=== PATIENT | male | born 1985 | race Caucasian/White ===

== ENCOUNTER 2016-04-18 18:01 | Emergency (ER) | payer OTHER ==
[2016-04-18] MEDS ORDERED: IBUPROFEN 600 MG TAB As Ordered ONE (19:59)
[2016-04-18] MEDS ORDERED: AMOXICILLIN 500 MG CAP As Ordered ONE (19:59)
--- NOTE | 2016-04-18 20:05 | EDDOCDS ---
Physician Documentation [facility] Name: Riley Robledo Jr Age: 30 yrs Sex: Male : 1985 Arrival Date: 04/18/2016 Time: 18:01 Bed Triage 2 Private MD: Disposition: 04/18/16 19:59 Discharged to Home/Self Care. Impression: Acute serous otitis media, left ear, Acute upper respiratory infection, unspecified. - Condition is Stable. - Discharge Instructions: Otitis Media, Adult, Upper Respiratory Infection, Adult. - Prescriptions for Amoxicillin 500 mg Oral Capsule - take 1 capsule by ORAL route every 8 hours for 10 days; 30 tablet. - Medication Reconciliation, Local Pharmacy Hours form. - Follow up: Private Physician; When: Call to arrange an appointment; Reason: Recheck today's complaints, Continuance of care. - Problem is new. - Symptoms are unchanged. Historical: - Allergies: No known drug Allergies; - Home Meds: 1. none - PMHx: none; - PSHx: none; - Social history: Smoking status: Patient uses tobacco products, heavy tobacco smoker. No barriers to communication noted, The patient speaks fluent [place], Speaks appropriately for age. - Family history: Not pertinent. - : The pt / caregiver states he / she is not on anticoagulants. Home medication list is obtained from the patient. - Exposure Risk Screening:: None identified. Vital Signs: 04/18 18:03 BP 146 / 82 RA Sitting (auto/reg); Pulse 69; Resp 16; Temp 98.7(O); Pulse Ox 97% on jrd R/A; Weight 88.45 kg / 195 lbs (R); Height 6 ft. 1 in. (185.42 cm) (R); Pain 2/10; 20:02 BP 138 / 80; Pulse 78; Resp 18; Temp 97.5(O); Pulse Ox 99% on R/A; Pain 0/10; jmb 18:03 Body Mass Index 25.73 (88.45 kg, 185.42 cm) jrd MDM: 19:58 Amoxicillin 500 mg PO once ordered. mo1 19:58 Ibuprofen 600 mg PO once ordered. mo1 Administered Medications: 20:00 Drug: Amoxicillin 500 mg [amoxicillin 500 mg capsule (1 caps)] Route: PO; jmb 20:00 Drug: Ibuprofen 600 mg [ibuprofen 600 mg tablet (1 tabs)] Route: PO; jmb Signatures: Davide Redding PA PA mo1 Kd Roldan,RN RN mery MTDD
--- NOTE | 2016-04-18 20:05 | EDDOCDS ---
Nurse's Notes [facility] Name: Riley Robledo Jr Age: 30 yrs Sex: Male : 1985 Arrival Date: 04/18/2016 Time: 18:01 Bed Triage 2 Private MD: Diagnosis: Acute serous otitis media, left ear;Acute upper respiratory infection, unspecified Presentation: 04/18 18:06 Presenting complaint: Patient states: Patient reports that he believes to have an ear jmb infection. Patient reports that he has pressure, headaches. Patient reports pain on and off. Patient reports that his hearing loss is worse. Patient reports the main concern is pressure. Patient reports symptoms present for two days. This patient has no additional risk factors. Adult Sepsis Screening: The patient does not have new or worsening altered mentation. Patient's respiratory rate is less than 22. Systolic blood pressure is greater than 100. Patient has a qSOFA score of 0- Negative Sepsis Screen. Suicide/Homicide risk assessment- the patient denies having any suicidal and/or homicidal ideations and does not present with any other emotional, behavioral or mental health complaints. Status: Patient is not a lawn service worker or dependent. Transition of care: patient was not received from another setting of care. 18:06 Acuity: DEMOND Level 4 jmb 18:06 Method Of Arrival: Walkin/Carried/Asstd jmb Triage Assessment: 18:07 Headache History: This patient does not have a history of previous headaches. General: jmb Appears in no apparent distress, Behavior is appropriate for age, cooperative. Pain: Location: left ear Pain currently is 2 out of 10 on a pain scale. Pain began 2-3 days ago Also complains of no other associated symptoms. Pt Declines HIV testing. Neurological: Level of Consciousness is awake, alert, obeys commands, Oriented to person, place, time, Speech is normal, Facial symmetry appears normal, Facial symmetry: tongue is midline. Respiratory: Airway is patent Respiratory effort is even, unlabored, Respiratory pattern is regular, symmetrical. Derm: Skin is pink, warm & dry. Musculoskeletal: Range of motion intact in all extremities. Historical: - Allergies: No known drug Allergies; - Home Meds: 1. none - PMHx: none; - PSHx: none; - Social history: Smoking status: Patient uses tobacco products, heavy tobacco smoker. No barriers to communication noted, The patient speaks fluent Nepalese, Speaks appropriately for age. - Family history: Not pertinent. - : The pt / caregiver states he / she is not on anticoagulants. Home medication list is obtained from the patient. - Exposure Risk Screening:: None identified. Screenin:02 Screening information is obtained from the patient. Fall risk: No risks identified. jmb Assistance ADL's: requires no assistance with activities of daily living. Abuse/DV Screen: The patient / caregiver reports he/she is: not in a situation that causes fear, pain or injury. Nutritional screening: No deficits noted. Advance Directives: Currently, there is no health care proxy. There is no active DNR order. There is no living will. There is no Power of Cushion Assembler. home support is adequate. Assessment: 20:02 General: Patient instructed on discharge instructions. Patient asked if there were any b questions regarding discharge, patient stated no. Patient signed discharge instructions. Patient discharged in stable condition. . Pain: Denies pain. Vital Signs: 18:03 BP 146 / 82 RA Sitting (auto/reg); Pulse 69; Resp 16; Temp 98.7(O); Pulse Ox 97% on jrd R/A; Weight 88.45 kg (R); Height 6 ft. 1 in. (185.42 cm) (R); Pain 2/10; 20:02 BP 138 / 80; Pulse 78; Resp 18; Temp 97.5(O); Pulse Ox 99% on R/A; Pain 0/10; jmb 18:03 Body Mass Index 25.73 (88.45 kg, 185.42 cm) [facility] Vitals: 18:03 Log In Time: April 18, 2016 at 17:35. [facility] ED Course: 18:02 Patient visited by Onur Finney PCA. jrd 18:02 Patient moved to Waiting jrd 18:05 Patient visited by Onur Finney PCA. jrd 18:05 Patient moved to Pre RCE jrd 18:07 Triage Initiated jmb 19:10 Patient moved to Triage 2 ar3 19:50 Davide Redding PA is PHCP. mo1 19:50 Hayder Aguirre DO is Attending Physician. mo1 19:52 Patient visited by Davide Redding PA. mo1 20:02 The patient / caregiver is instructed regarding the plan of care and ED course. jmb 20:02 No IV's were initiated during this patient's visit. No procedures done that require jmb assistance. Administered Medications: 20:00 Drug: Amoxicillin 500 mg [amoxicillin 500 mg capsule (1 caps)] Route: PO; jmb 20:00 Drug: Ibuprofen 600 mg [ibuprofen 600 mg tablet (1 tabs)] Route: PO; jmb Order Results: There are currently no results for this order. Outcome: 19:59 Discharge ordered by Provider. mo1 20:02 Discharge Assessment: Patient awake, alert and oriented x 3. No cognitive and/or jmb functional deficits noted. Patient verbalized understanding of disposition instructions. Patient awake and alert. obeys commands, Oriented to person, place and time. Patient verbalized understanding of disposition instructions. Patient has no functional deficits. patient administered narcotics - no. The following High Risk Discharge criteria are identified: None. Discharged to home ambulatory. Condition: stable Condition: improved. Discharge instructions given to patient, Instructed on discharge instructions, follow up and referral plans. medication usage, Demonstrated understanding of instructions, medications, Pt was receptive of discharge instructions/ teaching. Prescriptions given X 1. No special radiology studies were completed. Property sent home with patient. 20:04 Patient left the ED. [facility] Signatures: Trina Hicks, PLASTIC SURGEON PLASTIC SURGEON ar3 Davide Redding PA PA mo1 Kd Roldan,RN RN Onur Byrne, PLASTIC SURGEON PLASTIC SURGEON jrd MTDD
--- NOTE | 2016-04-20 21:05 | EDDOCDS ---
Physician Documentation [facility] Name: Riley Robledo Jr Age: 30 yrs Sex: Male : 1985 Arrival Date: 04/18/2016 Time: 18:01 Bed Triage 2 Private MD: Disposition: 04/18/16 19:59 Discharged to Home/Self Care. Impression: Acute serous otitis media, left ear, Acute upper respiratory infection, unspecified. - Condition is Stable. - Discharge Instructions: Otitis Media, Adult, Upper Respiratory Infection, Adult. - Prescriptions for Amoxicillin 500 mg Oral Capsule - take 1 capsule by ORAL route every 8 hours for 10 days; 30 tablet. - Medication Reconciliation, Local Pharmacy Hours form. - Follow up: Private Physician; When: Call to arrange an appointment; Reason: Recheck today's complaints, Continuance of care. - Problem is new. - Symptoms are unchanged. Historical: - Allergies: No known drug Allergies; - Home Meds: 1. none - PMHx: none; - PSHx: none; - Social history: Smoking status: Patient uses tobacco products, heavy tobacco smoker. No barriers to communication noted, The patient speaks fluent South Korean, Speaks appropriately for age. - Family history: Not pertinent. - : The pt / caregiver states he / she is not on anticoagulants. Home medication list is obtained from the patient. - Exposure Risk Screening:: None identified. Vital Signs: 04/18 18:03 BP 146 / 82 RA Sitting (auto/reg); Pulse 69; Resp 16; Temp 98.7(O); Pulse Ox 97% on jrd R/A; Weight 88.45 kg / 195 lbs (R); Height 6 ft. 1 in. (185.42 cm) (R); Pain 2/10; 20:02 BP 138 / 80; Pulse 78; Resp 18; Temp 97.5(O); Pulse Ox 99% on R/A; Pain 0/10; jmb 18:03 Body Mass Index 25.73 (88.45 kg, 185.42 cm) jrd MDM: 19:58 Amoxicillin 500 mg PO once ordered. mo1 19:58 Ibuprofen 600 mg PO once ordered. mo1 20:15 Financial registration complete. zo 20:15 [facility] Payment Agreement was scanned into [employer] and attached to record. zo 04/19 09:28 T-Sheet-- Draft Copy was scanned into [employer] and attached to record. gb Administered Medications: 04/18 20:00 Drug: Amoxicillin 500 mg [amoxicillin 500 mg capsule (1 caps)] Route: PO; mery 20:00 Drug: Ibuprofen 600 mg [ibuprofen 600 mg tablet (1 tabs)] Route: PO; mery Signatures: Torrie Alvarez, Reg Reg gb Carina Boles Michael, PA PA mo1 Kd Roldan RN RN mery The chart was reviewed and I authenticate all verbal orders and agree with the evaluation and treatment provided.Attachments: 20:15 [facility] Payment Agreement zo 04/19 09:28 T-Sheet-- Draft Copy gb Chart Complete MTDD
--- NOTE | 2016-04-20 21:06 | EDDOCDS ---
Physician Documentation [facility] Name: Riley Robledo Jr Age: 30 yrs Sex: Male : 1985 Arrival Date: 04/18/2016 Time: 18:01 Bed Triage 2 Private MD: Disposition: 04/18/16 19:59 Discharged to Home/Self Care. Impression: Acute serous otitis media, left ear, Acute upper respiratory infection, unspecified. - Condition is Stable. - Discharge Instructions: Otitis Media, Adult, Upper Respiratory Infection, Adult. - Prescriptions for Amoxicillin 500 mg Oral Capsule - take 1 capsule by ORAL route every 8 hours for 10 days; 30 tablet. - Medication Reconciliation, Local Pharmacy Hours form. - Follow up: Private Physician; When: Call to arrange an appointment; Reason: Recheck today's complaints, Continuance of care. - Problem is new. - Symptoms are unchanged. Historical: - Allergies: No known drug Allergies; - Home Meds: 1. none - PMHx: none; - PSHx: none; - Social history: Smoking status: Patient uses tobacco products, heavy tobacco smoker. No barriers to communication noted, The patient speaks fluent [place]an, Speaks appropriately for age. - Family history: Not pertinent. - : The pt / caregiver states he / she is not on anticoagulants. Home medication list is obtained from the patient. - Exposure Risk Screening:: None identified. Vital Signs: 04/18 18:03 BP 146 / 82 RA Sitting (auto/reg); Pulse 69; Resp 16; Temp 98.7(O); Pulse Ox 97% on jrd R/A; Weight 88.45 kg / 195 lbs (R); Height 6 ft. 1 in. (185.42 cm) (R); Pain 2/10; 20:02 BP 138 / 80; Pulse 78; Resp 18; Temp 97.5(O); Pulse Ox 99% on R/A; Pain 0/10; jmb 18:03 Body Mass Index 25.73 (88.45 kg, 185.42 cm) jrd MDM: 19:58 Amoxicillin 500 mg PO once ordered. mo1 19:58 Ibuprofen 600 mg PO once ordered. mo1 20:15 Financial registration complete. zo 20:15 [facility] Payment Agreement was scanned into [employer] and attached to record. zo 04/19 09:28 T-Sheet-- Draft Copy was scanned into [employer] and attached to record. gb Administered Medications: 04/18 20:00 Drug: Amoxicillin 500 mg [amoxicillin 500 mg capsule (1 caps)] Route: PO; mery 20:00 Drug: Ibuprofen 600 mg [ibuprofen 600 mg tablet (1 tabs)] Route: PO; mery Signatures: Torrie Alvarez, Reg Reg gb Carina Boles Michael, PA PA mo1 Kd Roldan RN RN mery The chart was reviewed and I authenticate all verbal orders and agree with the evaluation and treatment provided.Attachments: 20:15 [facility] Payment Agreement zo 04/19 09:28 T-Sheet-- Draft Copy gb Chart Complete MTDD
--- NOTE | 2016-04-20 21:06 | EDDOCDS ---
Nurse's Notes [facility] Name: Riley Robledo Jr Age: 30 yrs Sex: Male : 1985 Arrival Date: 04/18/2016 Time: 18:01 Bed Triage 2 Private MD: Diagnosis: Acute serous otitis media, left ear;Acute upper respiratory infection, unspecified Presentation: 04/18 18:06 Presenting complaint: Patient states: Patient reports that he believes to have an ear jmb infection. Patient reports that he has pressure, headaches. Patient reports pain on and off. Patient reports that his hearing loss is worse. Patient reports the main concern is pressure. Patient reports symptoms present for two days. This patient has no additional risk factors. Adult Sepsis Screening: The patient does not have new or worsening altered mentation. Patient's respiratory rate is less than 22. Systolic blood pressure is greater than 100. Patient has a qSOFA score of 0- Negative Sepsis Screen. Suicide/Homicide risk assessment- the patient denies having any suicidal and/or homicidal ideations and does not present with any other emotional, behavioral or mental health complaints. Status: Patient is not a public services assistant or dependent. Transition of care: patient was not received from another setting of care. 18:06 Acuity: DEMOND Level 4 jmb 18:06 Method Of Arrival: Walkin/Carried/Asstd jmb Triage Assessment: 18:07 Headache History: This patient does not have a history of previous headaches. General: jmb Appears in no apparent distress, Behavior is appropriate for age, cooperative. Pain: Location: left ear Pain currently is 2 out of 10 on a pain scale. Pain began 2-3 days ago Also complains of no other associated symptoms. Pt Declines HIV testing. Neurological: Level of Consciousness is awake, alert, obeys commands, Oriented to person, place, time, Speech is normal, Facial symmetry appears normal, Facial symmetry: tongue is midline. Respiratory: Airway is patent Respiratory effort is even, unlabored, Respiratory pattern is regular, symmetrical. Derm: Skin is pink, warm & dry. Musculoskeletal: Range of motion intact in all extremities. Historical: - Allergies: No known drug Allergies; - Home Meds: 1. none - PMHx: none; - PSHx: none; - Social history: Smoking status: Patient uses tobacco products, heavy tobacco smoker. No barriers to communication noted, The patient speaks fluent Albanian, Speaks appropriately for age. - Family history: Not pertinent. - : The pt / caregiver states he / she is not on anticoagulants. Home medication list is obtained from the patient. - Exposure Risk Screening:: None identified. Screenin:02 Screening information is obtained from the patient. Fall risk: No risks identified. jmb Assistance ADL's: requires no assistance with activities of daily living. Abuse/DV Screen: The patient / caregiver reports he/she is: not in a situation that causes fear, pain or injury. Nutritional screening: No deficits noted. Advance Directives: Currently, there is no health care proxy. There is no active DNR order. There is no living will. There is no Power of Exhaust Machine Operator. home support is adequate. Assessment: 20:02 General: Patient instructed on discharge instructions. Patient asked if there were any b questions regarding discharge, patient stated no. Patient signed discharge instructions. Patient discharged in stable condition. . Pain: Denies pain. Vital Signs: 18:03 BP 146 / 82 RA Sitting (auto/reg); Pulse 69; Resp 16; Temp 98.7(O); Pulse Ox 97% on jrd R/A; Weight 88.45 kg (R); Height 6 ft. 1 in. (185.42 cm) (R); Pain 2/10; 20:02 BP 138 / 80; Pulse 78; Resp 18; Temp 97.5(O); Pulse Ox 99% on R/A; Pain 0/10; jmb 18:03 Body Mass Index 25.73 (88.45 kg, 185.42 cm) [facility] Vitals: 18:03 Log In Time: April 18, 2016 at 17:35. [facility] ED Course: 18:02 Patient visited by Onur Finney PCA. jrd 18:02 Patient moved to Waiting jrd 18:05 Patient visited by Onur Finney PCA. jrd 18:05 Patient moved to Pre RCE jrd 18:07 Triage Initiated jmb 19:10 Patient moved to Triage 2 ar3 19:50 Davide Redding PA is PHCP. mo1 19:50 Hayder Aguirre DO is Attending Physician. mo1 19:52 Patient visited by Davide Rdeding PA. mo1 20:02 The patient / caregiver is instructed regarding the plan of care and ED course. jmb 20:02 No IV's were initiated during this patient's visit. No procedures done that require jmb assistance. 20:15 [facility] Payment Agreement was scanned into [employer] and attached to record. zo 04/19 09:28 T-Sheet-- Draft Copy was scanned into [employer] and attached to record. gb Administered Medications: 04/18 20:00 Drug: Amoxicillin 500 mg [amoxicillin 500 mg capsule (1 caps)] Route: PO; jmb 20:00 Drug: Ibuprofen 600 mg [ibuprofen 600 mg tablet (1 tabs)] Route: PO; b Order Results: There are currently no results for this order. Outcome: 19:59 Discharge ordered by Provider. mo1 20:02 Discharge Assessment: Patient awake, alert and oriented x 3. No cognitive and/or jmb functional deficits noted. Patient verbalized understanding of disposition instructions. Patient awake and alert. obeys commands, Oriented to person, place and time. Patient verbalized understanding of disposition instructions. Patient has no functional deficits. patient administered narcotics - no. The following High Risk Discharge criteria are identified: None. Discharged to home ambulatory. Condition: stable Condition: improved. Discharge instructions given to patient, Instructed on discharge instructions, follow up and referral plans. medication usage, Demonstrated understanding of instructions, medications, Pt was receptive of discharge instructions/ teaching. Prescriptions given X 1. No special radiology studies were completed. Property sent home with patient. 20:04 Patient left the ED. mery Signatures: Torrie Alvarez, Edgar Reg Carina Gregory Alicia, COUNSELOR DORMITORY COUNSELOR DORMITORY ar3 Davide Redding PA PA mo1 Kd Roldan, RN RN Onur Byrne, COUNSELOR DORMITORY COUNSELOR DORMITORY jrd Chart Complete MTDD
== END 2016-04-18 20:04 | disposition home or self-care (01) ==
LOC: M ED 18:01
DX: H65.192 Other acute nonsuppurative otitis media, left ear (principal); J06.9 Acute upper respiratory infection, unspecified; Z72.0 Tobacco use

== ENCOUNTER 2017-03-22 14:58 | Emergency (ER) | payer SELFPAY, OTHER ==
[2017-03-22] MEDS: CLINDAMYCIN 150 MG CAP PO (17:22)
[2017-03-22] MEDS: ADACEL/BOOSTRIX VACCINE (DIPHTH/PERTUSS/ACELL/TETANUS)0.5ML SYR (90715) IM (17:23)
== END 2017-03-22 17:26 | disposition home or self-care (01) ==
LOC: M ED 14:58
DX: L02.215 Cutaneous abscess of perineum (principal); F17.210 Nicotine dependence, cigarettes, uncomplicated
CPT/HCPCS: 90715

== ENCOUNTER 2019-09-30 09:27 | Emergency (ER) | payer OTHER ==
[~2019-09-30 09:27] MED LIST: CLEO300C2 PO
[2019-09-30] MEDS ORDERED: METOCLOPRAMIDE INJ 10MG/2ML VIAL (J2765 PER 1) ONE (09:40)
[2019-09-30] MEDS ORDERED: ONDANSETRON 4MG/2ML VIAL As Ordered ONE (09:40)
[2019-09-30] MEDS ORDERED: ONDANSETRON 4MG/2ML VIAL ONE (09:40)
[2019-09-30] MEDS ORDERED: METOCLOPRAMIDE INJ 10MG/2ML VIAL (J2765 PER 1) As Ordered ONE (10:16)
[2019-09-30] MEDS ORDERED: ISOVUE-370 76% 100ML VIAL As Ordered ONE (11:30)
[2019-09-30] MEDS ORDERED: MORPHINE 4 MG/ML 1ML VIAL/SYRINGE (J2270) As Ordered ONE (12:17)
[2019-09-30] MEDS ORDERED: MORPHINE 4 MG/ML 1ML VIAL/SYRINGE (J2270) ONE (12:17)
[2019-09-30] MEDS ORDERED: GASTROGRAFIN SOLUTION 30ML (Q9963) As Ordered ONE (14:05)
[2019-11-17 03:46] LABS: BASO % 0.2 % (0.0-1.0); HEMATOCRIT 39.4 % (42.0-52.0); HEMOGLOBIN 13.4 g/dl (13.5-17.5); LYMPH # 1.6 10^3/uL (1.5-5.0); LYMPH % 8.5 % (24.0-44.0); MEAN CORPUSCULAR HEMOGLOBIN 32.1 pg (27.0-33.0); MEAN CORPUSCULAR VOLUME 94.5 fl (80.0-96.0); MONO # 0.4 10^3/uL (0.0-0.8); MONO % 2.1 % (0.0-5.0); NEUTROPHILS # 17.1 10^3/uL (1.5-8.5); NEUTROPHILS % 88.7 % (36.0-66.0); PLATELET COUNT, AUTOMATED 204 10^3/uL (150-450); RED BLOOD COUNT 4.17 10^6/uL (4.30-6.10); WHITE BLOOD COUNT 19.3 10^3/uL (4.0-10.0)
[2019-11-17 03:59] LABS: APPEARANCE, URINE CLEAR (CLEAR); BACTERIA, URINE AUTO NEGATIVE (NEGATIVE); BILIRUBIN, URINE AUTO NEGATIVE (NEGATIVE); BLOOD, URINE BLOOD NEGATIVE (NEGATIVE); COLOR, URINE YELLOW (YELLOW); GLUCOSE, URINE (UA) AUTO 1+ mg/dL (NEGATIVE); KETONE, URINE AUTO 2+ mg/dL (NEGATIVE); LEUKOCYTE ESTERASE, URINE AUTO NEGATIVE (NEGATIVE); MUCUS, URINE SMALL (NEGATIVE); NITRITE, URINE AUTO NEGATIVE (NEGATIVE); PROTEIN, URINE AUTO 2+ mg/dL (NEGATIVE); RBC, URINE AUTO 2 /HPF (0-3); SPECIFIC GRAVITY URINE AUTO 1.026 (1.002-1.035); SQUAMOUS EPITHELIAL CELL UR AU 0 /HPF (0-6); UROBILINOGEN, URINE AUTO 0.2 mg/dL (0.0-2.0); WBC, URINE AUTO 0 /HPF (0-3)
--- NOTE | 2019-11-20 07:33 | REP ---
GASTROGRAFIN SMALL BOWEL FOLLOW-THROUGH STUDY HISTORY: Intussusception on CT study abdomen and pelvis 09/30/2019 done for abdominal pain. Pain is relieved. Follow-up suggested. Fluoroscopy time is 0.3 minutes. FINDINGS: Gastrografin small bowel follow-through study demonstrates normal loops of jejunum and ileum. No evidence of obstruction. No evidence of intussusception. Contrast is seen opacifying the colon all the way to the rectum. Nasogastric tube in place. Distal ileum is unremarkable. IMPRESSION: No abnormality noted. No evidence of intussusception. This report was delayed due to a protracted computer network disruption experienced by this facility. [facility]
[2019-12-09 01:20] LABS: ALBUMIN 4.4 GM/DL (3.2-5.2); ALT/SGPT 20 U/L (12-78); AMPHETAMINES LEVEL URINE NEGATIVE (NEGATIVE); BARBITURATES URINE NEGATIVE (NEGATIVE); BENZODIAZEPINES URINE NEGATIVE (NEGATIVE); BILIRUBIN,DIRECT 0.2 MG/DL (0.0-0.2); BILIRUBIN,TOTAL 0.7 MG/DL (0.2-1.0); BLOOD UREA NITROGEN 10 MG/DL (7-18); CALCIUM LEVEL 9.7 MG/DL (8.5-10.1); CANNABINOIDS URINE POSITIVE (NEGATIVE); CARBON DIOXIDE LEVEL 21 MEQ/L (21-32); CHLORIDE LEVEL 109 MEQ/L (98-107); COCAINE METABOLITE URINE NEGATIVE (NEGATIVE); CREATININE FOR GFR 1.03 MG/DL (0.70-1.30); GLOMERULAR FILTRATION RATE > 60.0 (>60); GLUCOSE, FASTING 159 MG/DL (70-100); LIPASE 78 U/L (73-393); METHADONE URINE NEGATIVE (NEGATIVE); OPIATES URINE NEGATIVE (NEGATIVE); PHENCYCLIDINE URINE NEGATIVE (NEGATIVE); POTASSIUM SERUM 3.6 MEQ/L (3.5-5.1); SODIUM LEVEL 140 MEQ/L (136-145); TOTAL PROTEIN 7.1 GM/DL (6.4-8.2)
== END 2019-09-30 17:15 | disposition home or self-care (01) ==
LOC: M ED 09:27
DX: K56.1 Intussusception (principal); F17.210 Nicotine dependence, cigarettes, uncomplicated; Z83.79 Family history of other diseases of the digestive system
CPT/HCPCS: 43752; 74177; 74250; 80048; 80076; 80307; 81001; 83690; 85025; 87086; 96374; 96375; 99284; J2270; J2405; J2765; Q9963; Q9967

== ENCOUNTER → 2021-05-04 | Outpatient (CLI) | payer OTHER | LOC: M LAB 09:32 | PROVIDERS: ATTEND Internal Medicine Gastroenterology | DX: K65.1 Peritoneal abscess (principal) ==

== ENCOUNTER → 2021-05-28 | Outpatient (CLI) | payer OTHER ==
[~2021-05-28] MED LIST changes: +E-Z-PAQUE 96% w/w SUSP 176GM BTL As Ordered ONE
== END ==
LOC: M RAD 07:54
PROVIDERS: ATTEND Internal Medicine Gastroenterology
DX: K56.1 Intussusception (principal); R93.3 Abnormal findings on diagnostic imaging of other parts of digestive tract

== ENCOUNTER → 2021-07-27 | Outpatient (CLI) | payer OTHER ==
[~2021-07-27] MED LIST changes: -E-Z-PAQUE 96% w/w SUSP 176GM BTL As Ordered ONE
== END ==
LOC: M RAD 11:13
PROVIDERS: ATTEND Pediatrics
DX: Z00.00 Encounter for general adult medical examination without abnormal findings (principal)

== ENCOUNTER 2024-03-25 13:11 | Emergency (ER) | payer OTHER ==
[~2024-03-25] VITALS: Ht 185.4 cm; Wt 92.7 kg
[2024-03-25 14:32] LABS: BASO # 0.1 10^3/uL (0.0-0.2); BASO % 0.2 % (0.0-1.0); EOS % 0.1 % (0.0-3.0); HEMOGLOBIN 14.3 g/dl (13.5-17.5); LYMPH # 1.4 10^3/uL (1.5-5.0); MEAN CORPUSCULAR HEMOGLOBIN 32.7 pg (27.0-33.0); MEAN CORPUSCULAR HGB CONC 34.9 g/dl (32.0-36.5); MEAN CORPUSCULAR VOLUME 93.8 fl (80.0-96.0); MONO # 0.7 10^3/uL (0.0-0.8); MONO % 3.4 % (2.0-8.0); NEUTROPHILS # 18.2 10^3/uL (1.5-8.5); NEUTROPHILS % 88.8 % (36.0-66.0); PLATELET COUNT, AUTOMATED 261 10^3/uL (150-450); RED BLOOD COUNT 4.37 10^6/uL (4.30-6.10); WHITE BLOOD COUNT 20.5 10^3/uL (4.0-10.0)
[2024-03-25 15:04] LABS: LIPASE 28 U/L (12-53)
[2024-03-25 15:07] LABS: ALBUMIN 4.7 G/DL (3.2-5.2); ALKALINE PHOSPHATASE 89 U/L (40-129); ALT/SGPT 24 U/L (7.0-40); AST/SGOT 22 U/L (<34); BILIRUBIN,DIRECT 0.3 MG/DL (<0.4); BILIRUBIN,TOTAL 0.8 MG/DL (0.3-1.2); BLOOD UREA NITROGEN 16 MG/DL (9-23); CALCIUM LEVEL 10.9 MG/DL (8.5-10.1); CARBON DIOXIDE LEVEL 20 MMOL/L (20-31); CHLORIDE LEVEL 110 MMOL/L (98-107); CREATININE FOR GFR 0.93 MG/DL (0.70-1.30); GLOMERULAR FILTRATION RATE > 60.0 (>60); GLUCOSE, FASTING 152 MG/DL (60-100); POTASSIUM SERUM 3.8 MMOL/L (3.5-5.1); SODIUM LEVEL 145 MMOL/L (136-145); TOTAL PROTEIN 7.6 G/DL (5.7-8.2)
[2024-03-25 15:09] LABS: RSV AMPLIFICATION NEGATIVE (NEGATIVE)
[2024-03-25 15:13] LABS: ALBUMIN 4.8 G/DL (3.2-5.2); BILIRUBIN,DIRECT 0.3 MG/DL (<0.4); BILIRUBIN,TOTAL 0.9 MG/DL (0.3-1.2); TOTAL PROTEIN 7.7 G/DL (5.7-8.2)
[2024-03-25] MEDS ORDERED: ISOVUE-370 76% 100ML VIAL As Ordered ONE (15:18)
[2024-03-25] MEDS: NS (Normal Saline) 0.9% 1,000 ML IV ONE (18:31)
[2024-03-25] MEDS: HALOPERIDOL LACTATE 5MG/ML VIAL IV ONE (18:31)
[2024-03-25] MEDS ORDERED: ONDA-282 PO (20:33)
[2024-03-25 20:44] VITALS: BP 118/69; TEMP 100; O2SAT 94
== END 2024-03-25 20:42 | disposition home or self-care (01) ==
LOC: M ED 13:11
DX: F12.188 Cannabis abuse with other cannabis-induced disorder (principal); Z79.899 Other long term (current) drug therapy
CPT/HCPCS: 74018; 74177; 80048; 80076; 83690; 85025; 87631; 96361; 96374; 99284; J1630; Q9967